=== PATIENT | female | born 2000 | race African-American/Black ===

== ENCOUNTER 2023-01-02 11:37 | Inpatient (IN) ==
[2023-01-02 12:13] LABS: Basophils # (auto) 0.03 K/uL (0-0.2); Basophils % (auto) 0.4 %; Eosinophils % (auto) 1.2 %; Hematocrit (blood only) 37.8 % (37.0-47.0); Immature Granulocytes # (auto) 0.02 K/uL (0.01-0.20); Immature Granulocytes % (auto) 0.2 %; Lymphocytes # (auto) 1.72 K/uL (1.2-3.4); Lymphocytes % (auto) 20.1 %; Mean Corpuscular Hemoglobin 30.4 pg (25.0-34.0); Mean Corpuscular Hgb Conc 34.4 g/dL (32.0-36.0); Mean Corpuscular Volume 88.5 fL (80.0-100.0); Mean Platelet Volume 9.6 fL (9.4-12.4); Monocytes # (auto) 0.72 K/uL (0.11-0.59); Monocytes % (auto) 8.4 %; Neutrophils # (auto) 5.95 K/uL (1.40-6.50); Neutrophils % (auto) 69.7 %; Platelet Count 247 K/uL (130-400); RDW Coefficient of Variation 13.1 % (11.5-14.5); RDW Standard Deviation 42.4 fL (36.4-46.3); Red Blood Count 4.27 M/uL (4.20-5.40); White Blood Count 8.54 K/ul (4.8-10.8)
[2023-01-02 12:31] LABS: Albumin Level 4.7 gm/dl (3.4-5.0); Anion Gap 8 (3-11); Bilirubin Direct 0.2 mg/dl (0-0.2); Calcium 9.8 mg/dl (8.6-10.3); Carbon Dioxide 28 mmol/L (21-32); Chloride 103 mmol/L (98-107); Potassium 3.7 mmol/L (3.5-5.1); Sodium 139 mmol/L (136-145)
[2023-01-02 12:36] LABS: Acetaminophen < 3 ug/ml (10-30); Salicylate < 3.0 mg/dl (3.0-30)
[2023-01-02 12:37] LABS: BUN Creatinine Ratio 14.3 (10-20); Blood Urea Nitrogen 8 mg/dl (6-23); Creatinine Clr Calc Pharmacy 114.1 ml/min; Est GFR (African American) > 150.0 ml/min; Est GFR (Non-African American) 133.3 ml/min; Glucose 84 mg/dl (70-99(Fasting))
[2023-01-02 12:44] LABS: Alkaline Phosphatase 71 U/L (34-104); Aspartate Aminotransferase 175 U/L (13-39); Total Protein 8.1 gm/dl (6.0-8.3)
[2023-01-02 12:55] LABS: Alanine Aminotransferase 1251 U/L (7-52)
[2023-01-02 12:57] LABS: Appearance Urine Clear (Clear); Bilirubin Urine Negative (Negative); Blood Urine Negative (Negative); Color Urine Yellow; Glucose Urine UA Negative (Negative); Ketones Urine Negative (Negative); Leukocyte Esterase Urine Negative (Negative); Nitrite Urine Negative (Negative); Protein Urine Negative (Negative); Specific Gravity Urine 1.005 (1.000-1.030); Urobilinogen Urine Negative (Negative)
[2023-01-02] MEDS ORDERED: LORazepam 2 MG/1 ML VIAL IM STA (13:39)
[2023-01-02] MEDS ORDERED: ACETYLCYSTEINE IV ONE ×3 (13:39→15:16)
[2023-01-02] MEDS ORDERED: DEXTROSE 5% IV ONE ×3 (13:39→15:16)
[2023-01-02 13:48] LABS: Amphetamines+Metham, Urine Neg (Neg); Barbiturates, Urine Neg (Neg); Benzodiazepine, Urine Neg (Neg); Cocaine, Urine Neg (Neg); MDMA (Ecstacy), Urine Neg (Neg); Methadone, Urine Neg (Neg); Opiate, Urine Neg (Neg); Phencyclidine, Urine Neg (Neg)
[2023-01-02 14:22] LABS: Base Excess VBG 5.9 mEq/L; HCO3 VBG 31 mmol/L; Oxygen Saturation VBG < 60.0 %; PCO2 VBG 47 mmHg (38-50); PO2 VBG 11 mmHg; pH VBG 7.43 (7.36-7.41)
--- NOTE | 2023-01-02 14:22 | Emergency Department Note ---
History of Present Illness General Chief complaint: Illness Stated complaint: ELEVATED LIVER ENZYMES Time Seen by Provider: 01/02/23 11:52 History of Present Illness Provider complaint: Abnormal labs 22-year-old female presents emergency department from the [facility] for abnormal labs. According to the staff who is at bedside the patient had elevated liver enzymes. Patient reports no pain. Patient is reportedly 302 at the [facility] after a suicide attempt. Patient states she tried to overdose on "saltine crackers". Home Medications Medication Instructions Recorded Confirmed Type albuterol sulfate 90 mcg/actuation 2 puff inhalation Q6 PRN asthma 01/02/23 01/02/23 History aerosol inhaler calcium carbonate 500 mg calcium 1,000 mg PO TID PRN Indigestion 01/02/23 01/02/23 History (1,250 mg) chewable tablet diphenhydramine HCl 50 mg capsule 50 mg PO HS 01/02/23 01/02/23 History naproxen 500 mg tablet 500 mg PO BID PRN Pain 01/02/23 01/02/23 History nicotine (polacrilex) 2 mg gum 2 mg buccal .5XSDAY PRN .nicotine 01/02/23 01/02/23 History (Nicorette) dependance olanzapine 5 mg tablet (Zyprexa) 5 mg PO BID 01/02/23 01/02/23 History sennosides 8.6 mg tablet (Senokot) 8.6 mg PO DAILY PRN Constipation 01/02/23 01/02/23 History Allergies Allergy/AdvReac Type Severity Reaction Status Date / Time dinoprostone Allergy Unknown Verified 01/02/23 14:02 Past Med/Surg History Medical History No pertinent family history No pertinent past medical history Surgical History No pertinent past surgical history Social History Smoking Status: Current every day smoker Feels Safe at Home: Yes Physical Exam Vital Signs Vital Signs - 24 hr 01/02/23 11:46 01/02/23 13:10 01/02/23 14:47 Temperature 36.5 C Temperature Source Temporal Artery Scan Pulse Rate 95 H Pulse Rate [Finger] 75 80 Pulse Rhythm Regular Respiratory Rate 20 16 16 Respiratory Effort / Characteristics Non-Labored Spontaneous Non-Labored Spontaneous Non-Labored Spontaneous Respiratory Depth Normal Normal Normal Blood Pressure 138/97 Blood Pressure [Right Arm] 138/101 H 132/81 Blood Pressure Mean 110 Blood Pressure Mean [Right Arm] 113 98 Pulse Oximetry 98 100 99 Oxygen Delivery Method Room Air Room Air Sepsis Recent Fever Within 48 Hours No Sepsis New/Unexplained Change in Mental Status No Sepsis Action Taken by Nursing No Action Required Physical Exam HENT: Exam performed. - Head: Normocephalic and atraumatic. EYES: Conjunctivae and EOM are normal. Right eye exhibits no discharge. Left eye exhibits no discharge. No scleral icterus. NECK: Normal range of motion. Neck supple. No JVD present. CV: Normal rate, regular rhythm, normal heart sounds and intact distal pulses. There is no peripheral edema. Palpable radial pulses bue. PULM/CHEST: Effort normal and breath sounds normal. No respiratory distress. No stridor. no wheezes. no rales. ABD: The abdomen is soft. There is no tenderness. NEURO: Motor and sensation grossly intact. SKIN: Skin is warm and dry. He is not diaphoretic. PSYCH: Extremely bizarre. Patient is having flight of ideas. He does not appear to have good insight. Course Course 1152: The patient was evaluated in room A9. A complete history and physical exam was performed Cardiac monitoring: An order was placed for continuous cardiac monitoring. The monitor shows a rate of 70 with sinus rhythm interpreted by me 1224: Spoke with Solo KNIGHT at the [facility]. He states that the patient was admitted on December 30 for depression and major depression. He states the patient came from [facility] to the [facility] for her diagnosis of depression and major depressive disorder. He initially stated that there is no reported overdose however he does state that the patient might of taken a total of 6 Tylenol within 24 hours of admission to the [facility]. 1233: I went back and spoke with the patient and she states she did try to overdose on Tylenol. Patient is again lacking insight and is having flight of ideas talk about very bizarre and random things about being and her iron levels. 1335: Spoke with poison control Dr. Maloney from [facility] toxicology. He and I both agree given the lack of an accurate history that can be provided by either the patient or her inpatient psychiatric facility, we should treat the patient with NAC for possible Tylenol overdose. He recommends getting a VBG and coagulation studies as well. He states that if the patient's venous pH is less than 7.3 she may need to be transferred to [facility] for possible liver transplant. He states after 17 hours of the neck treatment he wants a CMP and INR repeated to make sure that the patient's LFTs are less than 1000. 1454: Patient's VBG does not show any acidosis. Patient will be admitted to the [facility] team spoke with Chely who stated to admit to Dr. Ortiz 1543: CT of the head within normal limits. Dr. Ortiz will admit the patient Administered Medications Discontinued Medications Acetylcysteine 7,300 mg/ (Dextrose) 236.5 mls @ 200 mls/hr IV ONCE ONE; Protocol Stop: 01/02/23 14:49 Last Admin: 01/02/23 14:46 Dose: 200 mls/hr Documented By: MEGHA Lorazepam (Lorazepam 2 Mg/1 Ml Vial) 1 mg IM NOW STA Stop: 01/02/23 13:40 Last Admin: 01/02/23 14:42 Dose: Not Given Documented By: MEGHA Lorazepam (Lorazepam 2 Mg/1 Ml Vial) 1 mg IV NOW STA Stop: 01/02/23 14:42 Last Admin: 01/02/23 13:55 Dose: 1 mg Documented By: MEGHA Critical Care Time Critical Care Time: Yes Total Critical Care Time: 55 I have personally spent greater than 55 minutes of critical care time in the direct management of this patient. This includes bedside care, interpretation of diagnostic studies, and testing, discussion with consultants, patient, and family members, and other required patient management activities. This 55 minutes is in excess of all separately billable procedures. Medical Decision Making Medical Records Attestation: I reviewed the patient's medical records. External medical records reviewed from the [facility] and the patient was sent with [facility] lab drawings that were collected on December 31, 2022 which showed a total bilirubin of 1.9 AST of 2524 and ALT of 2869. Laboratory Data Attestation: I reviewed the patient's lab results. 01/02/23 11:57 01/02/23 11:57 Lab Results 01/02/23 01/02/23 01/02/23 Range/Units 11:57 11:57 11:57 WBC 8.54 (4.8-10.8) K/ul RBC 4.27 (4.20-5.40) M/uL Hgb 13.0 (12.0-16.0) g/dl Hct 37.8 (37.0-47.0) % MCV 88.5 (80.0-100.0) fL MCH 30.4 (25.0-34.0) pg MCHC 34.4 (32.0-36.0) g/dL RDW Std Deviation 42.4 (36.4-46.3) fL RDW Coeff of Christian 13.1 (11.5-14.5) % Plt Count 247 (130-400) K/uL MPV 9.6 (9.4-12.4) fL Immature Gran % (Auto) 0.2 % Neut % (Auto) 69.7 % Lymph % (Auto) 20.1 % [place]ff[place] % (Auto) 8.4 % Eos % (Auto) 1.2 % Baso % (Auto) 0.4 % Neut # (Auto) 5.95 (1.40-6.50) K/uL Lymph # (Auto) 1.72 (1.2-3.4) K/uL [place]duffie # (Auto) 0.72 H (0.11-0.59) K/uL Eos # (Auto) 0.10 (0-0.50) K/uL Baso # (Auto) 0.03 (0-0.2) K/uL Immature Gran # (Auto) 0.02 (0.01-0.20) K/uL PT (9.0-12.0) Seconds INR (0.9-1.1) APTT (21.0-31.0) Seconds PTT Ratio VBG pH (7.36-7.41) VBG pCO2 (38-50) mmHg VBG pO2 mmHg VBG HCO3 mmol/L VBG O2 Saturation % VBG Base Excess mEq/L Sodium 139 (136-145) mmol/L Potassium 3.7 (3.5-5.1) mmol/L Chloride 103 (98-107) mmol/L Carbon Dioxide 28 (21-32) mmol/L Anion Gap 8 (3-11) BUN 8 (6-23) mg/dl Creatinine 0.56 L (0.6-1.2) mg/dl Est Cr Clr Drug Dosing 114.1 ml/min Est GFR ( Amer) > 150.0 ml/min Est GFR (Non-Af Amer) 133.3 ml/min BUN/Creatinine Ratio 14.3 (10-20) Glucose 84 (70-99(Fasting)) mg/dl Calcium 9.8 (8.6-10.3) mg/dl Total Bilirubin 1.0 (0.2-1.0) mg/dl Direct Bilirubin 0.2 (0-0.2) mg/dl AST 175 H (13-39) U/L ALT 1251 H (7-52) U/L Alkaline Phosphatase 71 (34-104) U/L Ammonia (18-72) umol/L Total Protein 8.1 (6.0-8.3) gm/dl Albumin 4.7 (3.4-5.0) gm/dl Lipase (11-82) U/L TSH (0.300-4.500) uIu/ml HCG, Quant < 1 mIU/ml Urine Color Urine Appearance (Clear) Urine pH (4.5-7.5) Ur Specific [place] (1.000-1.030) Urine Protein (Negative) Urine Glucose (UA) (Negative) Urine Ketones (Negative) Urine Blood (Negative) Urine Nitrite (Negative) Urine Bilirubin (Negative) Urine Urobilinogen (Negative) Ur Leukocyte Esterase (Negative) POC Ur Test (NEG) Salicylates (3.0-30) mg/dl Urine Opiates Screen (Neg) Ur Methadone, Qual (Neg) Acetaminophen (10-30) ug/ml Urine Barbiturates (Neg) Ur Phencyclidine (PCP) (Neg) U Amphetamin/Meth Scrn (Neg) MDMA (Ecstasy) Screen (Neg) U Benzodiazepines Scrn (Neg) Ur Cocaine Metabolite (Neg) U Marijuana (THC) Screen (Neg) Ethyl Alcohol mg/dL (<10.0) mg/dl SARS-CoV-2, RNA, NAAT (NEGATIVE) 01/02/23 01/02/23 01/02/23 Range/Units 11:57 11:57 11:57 WBC (4.8-10.8) K/ul RBC (4.20-5.40) M/uL Hgb (12.0-16.0) g/dl Hct (37.0-47.0) % MCV (80.0-100.0) fL MCH (25.0-34.0) pg MCHC (32.0-36.0) g/dL RDW Std Deviation (36.4-46.3) fL RDW Coeff of Christian (11.5-14.5) % Plt Count (130-400) K/uL MPV (9.4-12.4) fL Immature Gran % (Auto) % Neut % (Auto) % Lymph % (Auto) % [place]duff[place] % (Auto) % Eos % (Auto) % Baso % (Auto) % Neut # (Auto) (1.40-6.50) K/uL Lymph # (Auto) (1.2-3.4) K/uL [place] # (Auto) (0.11-0.59) K/uL Eos # (Auto) (0-0.50) K/uL Baso # (Auto) (0-0.2) K/uL Immature Gran # (Auto) (0.01-0.20) K/uL PT (9.0-12.0) Seconds INR (0.9-1.1) APTT (21.0-31.0) Seconds PTT Ratio VBG pH (7.36-7.41) VBG pCO2 (38-50) mmHg VBG pO2 mmHg VBG HCO3 mmol/L VBG O2 Saturation % VBG Base Excess mEq/L Sodium (136-145) mmol/L Potassium (3.5-5.1) mmol/L Chloride (98-107) mmol/L Carbon Dioxide (21-32) mmol/L Anion Gap (3-11) BUN (6-23) mg/dl Creatinine (0.6-1.2) mg/dl Est Cr Clr Drug Dosing ml/min Est GFR ( Amer) ml/min Est GFR (Non-Af Amer) ml/min BUN/Creatinine Ratio (10-20) Glucose (70-99(Fasting)) mg/dl Calcium (8.6-10.3) mg/dl Total Bilirubin (0.2-1.0) mg/dl Direct Bilirubin (0-0.2) mg/dl AST (13-39) U/L ALT (7-52) U/L Alkaline Phosphatase (34-104) U/L Ammonia (18-72) umol/L Total Protein (6.0-8.3) gm/dl Albumin (3.4-5.0) gm/dl Lipase 28 (11-82) U/L TSH 0.611 (0.300-4.500) uIu/ml HCG, Quant mIU/ml Urine Color Urine Appearance (Clear) Urine pH (4.5-7.5) Ur Specific [place] (1.000-1.030) Urine Protein (Negative) Urine Glucose (UA) (Negative) Urine Ketones (Negative) Urine Blood (Negative) Urine Nitrite (Negative) Urine Bilirubin (Negative) Urine Urobilinogen (Negative) Ur Leukocyte Esterase (Negative) POC Ur Test (NEG) Salicylates < 3.0 L (3.0-30) mg/dl Urine Opiates Screen (Neg) Ur Methadone, Qual (Neg) Acetaminophen < 3 L (10-30) ug/ml Urine Barbiturates (Neg) Ur Phencyclidine (PCP) (Neg) U Amphetamin/Meth Scrn (Neg) MDMA (Ecstasy) Screen (Neg) U Benzodiazepines Scrn (Neg) Ur Cocaine Metabolite (Neg) U Marijuana (THC) Screen (Neg) Ethyl Alcohol mg/dL (<10.0) mg/dl SARS-CoV-2, RNA, NAAT (NEGATIVE) 01/02/23 01/02/23 01/02/23 Range/Units 11:57 12:03 12:20 WBC (4.8-10.8) K/ul RBC (4.20-5.40) M/uL Hgb (12.0-16.0) g/dl Hct (37.0-47.0) % MCV (80.0-100.0) fL MCH (25.0-34.0) pg MCHC (32.0-36.0) g/dL RDW Std Deviation (36.4-46.3) fL RDW Coeff of Christian (11.5-14.5) % Plt Count (130-400) K/uL MPV (9.4-12.4) fL Immature Gran % (Auto) % Neut % (Auto) % Lymph % (Auto) % [place]duff[place] % (Auto) % Eos % (Auto) % Baso % (Auto) % Neut # (Auto) (1.40-6.50) K/uL Lymph # (Auto) (1.2-3.4) K/uL [place] # (Auto) (0.11-0.59) K/uL Eos # (Auto) (0-0.50) K/uL Baso # (Auto) (0-0.2) K/uL Immature Gran # (Auto) (0.01-0.20) K/uL PT (9.0-12.0) Seconds INR (0.9-1.1) APTT (21.0-31.0) Seconds PTT Ratio VBG pH (7.36-7.41) VBG pCO2 (38-50) mmHg VBG pO2 mmHg VBG HCO3 mmol/L VBG O2 Saturation % VBG Base Excess mEq/L Sodium (136-145) mmol/L Potassium (3.5-5.1) mmol/L Chloride (98-107) mmol/L Carbon Dioxide (21-32) mmol/L Anion Gap (3-11) BUN (6-23) mg/dl Creatinine (0.6-1.2) mg/dl Est Cr Clr Drug Dosing ml/min Est GFR ( Amer) ml/min Est GFR (Non-Af Amer) ml/min BUN/Creatinine Ratio (10-20) Glucose (70-99(Fasting)) mg/dl Calcium (8.6-10.3) mg/dl Total Bilirubin (0.2-1.0) mg/dl Direct Bilirubin (0-0.2) mg/dl AST (13-39) U/L ALT (7-52) U/L Alkaline Phosphatase (34-104) U/L Ammonia 40.0 (18-72) umol/L Total Protein (6.0-8.3) gm/dl Albumin (3.4-5.0) gm/dl Lipase (11-82) U/L TSH (0.300-4.500) uIu/ml HCG, Quant mIU/ml Urine Color Urine Appearance (Clear) Urine pH (4.5-7.5) Ur Specific [place] (1.000-1.030) Urine Protein (Negative) Urine Glucose (UA) (Negative) Urine Ketones (Negative) Urine Blood (Negative) Urine Nitrite (Negative) Urine Bilirubin (Negative) Urine Urobilinogen (Negative) Ur Leukocyte Esterase (Negative) POC Ur Test (NEG) Salicylates (3.0-30) mg/dl Urine Opiates Screen (Neg) Ur Methadone, Qual (Neg) Acetaminophen (10-30) ug/ml Urine Barbiturates (Neg) Ur Phencyclidine (PCP) (Neg) U Amphetamin/Meth Scrn (Neg) MDMA (Ecstasy) Screen (Neg) U Benzodiazepines Scrn (Neg) Ur Cocaine Metabolite (Neg) U Marijuana (THC) Screen (Neg) Ethyl Alcohol mg/dL < 10.0 (<10.0) mg/dl SARS-CoV-2, RNA, NAAT NEGATIVE (NEGATIVE) 01/02/23 01/02/23 01/02/23 Range/Units 12:21 12:21 12:27 WBC (4.8-10.8) K/ul RBC (4.20-5.40) M/uL Hgb (12.0-16.0) g/dl Hct (37.0-47.0) % MCV (80.0-100.0) fL MCH (25.0-34.0) pg MCHC (32.0-36.0) g/dL RDW Std Deviation (36.4-46.3) fL RDW Coeff of Christian (11.5-14.5) % Plt Count (130-400) K/uL MPV (9.4-12.4) fL Immature Gran % (Auto) % Neut % (Auto) % Lymph % (Auto) % [place] % (Auto) % Eos % (Auto) % Baso % (Auto) % Neut # (Auto) (1.40-6.50) K/uL Lymph # (Auto) (1.2-3.4) K/uL [place] # (Auto) (0.11-0.59) K/uL Eos # (Auto) (0-0.50) K/uL Baso # (Auto) (0-0.2) K/uL Immature Gran # (Auto) (0.01-0.20) K/uL PT (9.0-12.0) Seconds INR (0.9-1.1) APTT (21.0-31.0) Seconds PTT Ratio VBG pH (7.36-7.41) VBG pCO2 (38-50) mmHg VBG pO2 mmHg VBG HCO3 mmol/L VBG O2 Saturation % VBG Base Excess mEq/L Sodium (136-145) mmol/L Potassium (3.5-5.1) mmol/L Chloride (98-107) mmol/L Carbon Dioxide (21-32) mmol/L Anion Gap (3-11) BUN (6-23) mg/dl Creatinine (0.6-1.2) mg/dl Est Cr Clr Drug Dosing ml/min Est GFR ( Amer) ml/min Est GFR (Non-Af Amer) ml/min BUN/Creatinine Ratio (10-20) Glucose (70-99(Fasting)) mg/dl Calcium (8.6-10.3) mg/dl Total Bilirubin (0.2-1.0) mg/dl Direct Bilirubin (0-0.2) mg/dl AST (13-39) U/L ALT (7-52) U/L Alkaline Phosphatase (34-104) U/L Ammonia (18-72) umol/L Total Protein (6.0-8.3) gm/dl Albumin (3.4-5.0) gm/dl Lipase (11-82) U/L TSH (0.300-4.500) uIu/ml HCG, Quant mIU/ml Urine Color Yellow Urine Appearance Clear (Clear) Urine pH 7.0 (4.5-7.5) Ur Specific [place] 1.005 (1.000-1.030) Urine Protein Negative (Negative) Urine Glucose (UA) Negative (Negative) Urine Ketones Negative (Negative) Urine Blood Negative (Negative) Urine Nitrite Negative (Negative) Urine Bilirubin Negative (Negative) Urine Urobilinogen Negative (Negative) Ur Leukocyte Esterase Negative (Negative) POC Ur Test NEG (NEG) Salicylates (3.0-30) mg/dl Urine Opiates Screen Neg (Neg) Ur Methadone, Qual Neg (Neg) Acetaminophen (10-30) ug/ml Urine Barbiturates Neg (Neg) Ur Phencyclidine (PCP) Neg (Neg) U Amphetamin/Meth Scrn Neg (Neg) MDMA (Ecstasy) Screen Neg (Neg) U Benzodiazepines Scrn Neg (Neg) Ur Cocaine Metabolite Neg (Neg) U Marijuana (THC) Screen Pos H (Neg) Ethyl Alcohol mg/dL (<10.0) mg/dl SARS-CoV-2, RNA, NAAT (NEGATIVE) 01/02/23 01/02/23 Range/Units 14:11 14:11 WBC (4.8-10.8) K/ul RBC (4.20-5.40) M/uL Hgb (12.0-16.0) g/dl Hct (37.0-47.0) % MCV (80.0-100.0) fL MCH (25.0-34.0) pg MCHC (32.0-36.0) g/dL RDW Std Deviation (36.4-46.3) fL RDW Coeff of Christian (11.5-14.5) % Plt Count (130-400) K/uL MPV (9.4-12.4) fL Immature Gran % (Auto) % Neut % (Auto) % Lymph % (Auto) % [place] % (Auto) % Eos % (Auto) % Baso % (Auto) % Neut # (Auto) (1.40-6.50) K/uL Lymph # (Auto) (1.2-3.4) K/uL [place] # (Auto) (0.11-0.59) K/uL Eos # (Auto) (0-0.50) K/uL Baso # (Auto) (0-0.2) K/uL Immature Gran # (Auto) (0.01-0.20) K/uL PT 10.9 (9.0-12.0) Seconds INR 1.0 (0.9-1.1) APTT 28.5 (21.0-31.0) Seconds PTT Ratio 1.0 VBG pH 7.43 H (7.36-7.41) VBG pCO2 47 (38-50) mmHg VBG pO2 11 mmHg VBG HCO3 31 mmol/L VBG O2 Saturation < 60.0 % VBG Base Excess 5.9 mEq/L Sodium (136-145) mmol/L Potassium (3.5-5.1) mmol/L Chloride (98-107) mmol/L Carbon Dioxide (21-32) mmol/L Anion Gap (3-11) BUN (6-23) mg/dl Creatinine (0.6-1.2) mg/dl Est Cr Clr Drug Dosing ml/min Est GFR ( Amer) ml/min Est GFR (Non-Af Amer) ml/min BUN/Creatinine Ratio (10-20) Glucose (70-99(Fasting)) mg/dl Calcium (8.6-10.3) mg/dl Total Bilirubin (0.2-1.0) mg/dl Direct Bilirubin (0-0.2) mg/dl AST (13-39) U/L ALT (7-52) U/L Alkaline Phosphatase (34-104) U/L Ammonia (18-72) umol/L Total Protein (6.0-8.3) gm/dl Albumin (3.4-5.0) gm/dl Lipase (11-82) U/L TSH (0.300-4.500) uIu/ml HCG, Quant mIU/ml Urine Color Urine Appearance (Clear) Urine pH (4.5-7.5) Ur Specific [place] (1.000-1.030) Urine Protein (Negative) Urine Glucose (UA) (Negative) Urine Ketones (Negative) Urine Blood (Negative) Urine Nitrite (Negative) Urine Bilirubin (Negative) Urine Urobilinogen (Negative) Ur Leukocyte Esterase (Negative) POC Ur Test (NEG) Salicylates (3.0-30) mg/dl Urine Opiates Screen (Neg) Ur Methadone, Qual (Neg) Acetaminophen (10-30) ug/ml Urine Barbiturates (Neg) Ur Phencyclidine (PCP) (Neg) U Amphetamin/Meth Scrn (Neg) MDMA (Ecstasy) Screen (Neg) U Benzodiazepines Scrn (Neg) Ur Cocaine Metabolite (Neg) U Marijuana (THC) Screen (Neg) Ethyl Alcohol mg/dL (<10.0) mg/dl SARS-CoV-2, RNA, NAAT (NEGATIVE) Imaging Data Attestation: I personally reviewed and interpreted this imaging study as follows: My Impression: CT head: no ICH Radiologist's Impression: Head CT 01/02/23 11:[address] CT DOSE: 625.80 mGy.cm HISTORY: Altered mental status. TECHNIQUE: Multiaxial CT images of the head were performed without the use of intravenous contrast. Automated exposure control was utilized for this study. A dose lowering technique was utilized adhering to the principles of ALARA. Comparison: None. Findings: The paranasal sinuses and mastoid air cells are clear. The calvarium and skull base are intact. The ventricles and sulci are within normal limits. There is no mass, hematoma, midline shift, or acute infarct. Impression: No acute intracranial abnormality. ACT 112: Negative or not required by law. Electronically signed by: Lambert Monroy M.D. 01/02/2023 3:12 PM ECG Data Attestation: I personally reviewed and interpreted this ECG as follows: Indication: + toxicologic Rate (beats per minute): 69 Rhythm: + normal sinus ECG Intervals/blocks: + Normal QRS, + Normal IN and + Normal QT-c ECG ST segments: + Normal ST segments [facility] Narrative 1152: The patient was evaluated in room A9. A complete history and physical exam was performed Cardiac monitoring: An order was placed for continuous cardiac monitoring. The monitor shows a rate of 70 with sinus rhythm interpreted by me 1224: Spoke with Solo KNIGHT at the [facility]. He states that the patient was admitted on December 30 for depression and major depression. He states the patient came from [facility] to the [facility] for her diagnosis of depression and major depressive disorder. He initially stated that there is no reported overdose however he does state that the patient might of taken a total of 6 Tylenol within 24 hours of admission to the [facility]. 1233: I went back and spoke with the patient and she states she did try to overdose on Tylenol. Patient is again lacking insight and is having flight of ideas talk about very bizarre and random things about being and her iron levels. 1335: Spoke with poison control Dr. Maloney from [facility] toxicology. He and I both agree given the lack of an accurate history that can be provided by either the patient or her inpatient psychiatric facility, we should treat the patient with NAC for possible Tylenol overdose. He recommends getting a VBG and coagulation studies as well. He states that if the patient's venous pH is less than 7.3 she may need to be transferred to [facility] for possible liver t ransplant. He states after 17 hours of the neck treatment he wants a CMP and INR repeated to make sure that the patient's LFTs are less than 1000. 1454: Patient's VBG does not show any acidosis. Patient will be admitted to the [facility] team spoke with Chely who stated to admit to Dr. Ortiz Impression & Plan Overdose on Tylenol, Transaminitis Discharge Plan Visit Data Chief Complaint: Illness Stated Complaint: ELEVATED LIVER ENZYMES ED Provider: Ross Muñoz Discharge Problem: Overdose on Tylenol, Transaminitis Patient Disposition: Admitted As Inpatient Forms Stand Alone Forms: [facility] Prescriptions Prescriptions: No Action sennosides [Senokot] 8.6 mg Tablet 8.6 mg PO DAILY PRN (Reason: Constipation) diphenhydramine HCl [Benadryl] 50 mg Capsule 50 mg PO HS nicotine (polacrilex) [Nicorette] 2 mg Gum 2 mg BUCCAL .5XSDAY PRN (Reason: .nicotine dependance) olanzapine [Zyprexa] 5 mg Tablet 5 mg PO BID Rx Instructions: for Psychosis calcium carbonate [Tums 500] 500 mg calcium (1,250 mg) Tablet,Chewable 1,000 mg PO TID PRN (Reason: Indigestion) albuterol sulfate 90 mcg/actuation Hfa Aerosol Inhaler 2 puff INHALATION Q6 PRN (Reason: asthma) naproxen 500 mg Tablet 500 mg PO BID PRN (Reason: Pain) Referrals Referrals: Elba Watkins [Primary Care Provider] -
[2023-01-02] MEDS ORDERED: LORazepam 2 MG/1 ML VIAL IV STA (14:41)
[2023-01-02 14:58] LABS: Partial Thromboplastin Time 28.5 Seconds (21.0-31.0); Prothrombin Time 10.9 Seconds (9.0-12.0)
--- NOTE | 2023-01-02 15:04 | Electrocardiogram Report ---
Test Reason : Blood Pressure : / mmHG Vent. Rate : 069 BPM Atrial Rate : 069 BPM P-R Int : 118 ms QRS Dur : 082 ms QT Int : 362 ms P-R-T Axes : 060 073 -20 degrees QTc Int : 387 ms Normal sinus rhythm with sinus arrhythmia Nonspecific T wave abnormality Abnormal ECG No previous ECGs available Confirmed by Bryce Wheeler ([id number]) on 01/02/2023 3:03:48 PM Referred By: Confirmed By:Archie Wheeler
--- NOTE | 2023-01-02 15:13 | CT Scan Report ---
HEAD CT NONCONTRAST CT DOSE: 625.80 mGy.cm HISTORY: Altered mental status. TECHNIQUE: Multiaxial CT images of the head were performed without the use of intravenous contrast. A utomated exposure control was utilized for this study. A dose lowering technique was utilized adheri ng to the principles of ALARA. Comparison: None. Findings: The paranasal sinuses and mastoid air cells are clear. The calvarium and skull base are int act. The ventricles and sulci are within normal limits. There is no mass, hematoma, midline shift, or acute infarct. Impression: No acute intracranial abnormality. ACT 112: Negative or not required by law. Electronically signed by: Lambert Monroy M.D. 01/02/2023 3:12 PM
--- NOTE | 2023-01-02 16:44 | History & Physical Report ---
Date of Service January 02, 2023 Assessment & Plan (1) Overdose on Tylenol: (2) Transaminitis: (3) MDD (major depressive disorder): (4) Mood disorder: (5) Constipation: (6) Tobacco use disorder: (7) Indigestion: (8) Asthma: Plan Pt is a 22yo female presenting from the [facility] (where she was reportedly currently admitted for the past 3 days after a suicide attempt in the setting of MDD) with concern about her liver enzymes and possible tylenol overdose. Tylenol Overdose/Elevated liver enzymes -NAC as ordered -Trend CMP, INR per toxicology recs (due 17 hours after first NAC dose) -Hold home naproxen -Psychiatry consult MDD/Suicide Attempt/Mood disorder -continue home olanzapine -Psychiatry consult Constipation: continue home senekot Tobacco use Disorder- continue home nicorette Indigestion- continue home TUMs as needed Asthma-continue home inhaler as needed Dispo: med/surg with tele Diet: regular, safe tray CODE status: Full code DVT prophylaxis: ambulation as tolerated based on age History of Present Illness Chief Complaint: tylenol overdose Primary Care Provider: Psychiatry [facility] Pt is a 22yo female presenting from the [facility] (where she was reportedly currently admitted for the past 3 days after a suicide attempt in the setting of MDD) with concern about her liver enzymes and possible tylenol overdose. Pt's speech is pressured in the room and she is rambling. Unsure the accuracy of her statements as thoughts are tangential. However, she is concerned that she might be as she states she has been sexually active quite a bit recently. Unsure of her last period. States she is a mother to a one year old daughter. Is concerned about "all the big guys". States that she has been taking "handfuls" of tylenol. Would like to go back to "the facility". Denies any N/V/Abdominal pain. ED workup significant for elevated AST and ALT, urine tox positive for THC (marijuana). ED provider contacted Toxicology who advised NAC treatment (ordered by the ED) with repeat CMP and INR 17 hours after the first NAC treatment. Toxicology advised would like liver enzymes <1000 at that time. Allergies Allergy/AdvReac Type Severity Reaction Status Date / Time dinoprostone Allergy Unknown Verified 01/02/23 14:02 Home Medications Medication Instructions Recorded Confirmed Type albuterol sulfate 90 mcg/actuation 2 puff inhalation Q6 PRN asthma 01/02/23 01/02/23 History aerosol inhaler calcium carbonate 500 mg calcium 1,000 mg PO TID PRN Indigestion 01/02/23 01/02/23 History (1,250 mg) chewable tablet diphenhydramine HCl 50 mg capsule 50 mg PO HS 01/02/23 01/02/23 History naproxen 500 mg tablet 500 mg PO BID PRN Pain 01/02/23 01/02/23 History nicotine (polacrilex) 2 mg gum 2 mg buccal .5XSDAY PRN .nicotine 01/02/23 01/02/23 History (Nicorette) dependance olanzapine 5 mg tablet (Zyprexa) 5 mg PO BID 01/02/23 01/02/23 History sennosides 8.6 mg tablet (Senokot) 8.6 mg PO DAILY PRN Constipation 01/02/23 01/02/23 History Past Med/Surg History Medical History No pertinent family history No pertinent past medical history Surgical History No pertinent past surgical history Social History Smoking Status: Current every day smoker Feels Safe at Home: Yes Review of Systems Review of Systems: Unobtainable due to mental health condition Physical Exam Physical Exam: General: Alert, oriented. No acute distress, resting comfortably in bed. Skin: No noted rashes or bruises Psych: Tangential, incoherent speech Neuro: No gross deficits HEENT: NC/AT Chest: Nontender to palpation. CV: RRR, Normal s1, s2. No murmurs appreciated Resp: Breath sounds clear bilaterally, no increased effort of breathing. Abdomen: Soft, nontender, nondistended. No guarding. Extremities: No edema in lower extremities bilaterally. Results & Data Results & Data Vital Signs (Past 12 Hours) Vital Signs Temp Pulse Pulse Resp BP BP Pulse Ox 01/02/23 14:47 80 16 132/81 99 01/02/23 13:10 75 16 138/101 H 100 01/02/23 11:46 36.5 C 95 H 20 138/97 98 O2 Del Method 01/02/23 14:47 Room Air 01/02/23 13:10 Room Air 01/02/23 11:46
[2023-01-02] MEDS ORDERED: NICOTINE POLACRILEX 2 MG GUM MT PRN (20:06)
[2023-01-02] MEDS ORDERED: ALBUTEROL HFA 8 GM INHALER INH PRN (20:06)
[2023-01-02] MEDS ORDERED: SENNA 8.6 MG TAB PO PRN (20:06)
[2023-01-02] MEDS ORDERED: CALCIUM CARBONATE 500 MG CHEWABLE TAB PO PRN (20:14)
[2023-01-02] MEDS: OLANZapine 5 MG TABLET PO SCH (20:43)
[2023-01-02] MEDS: diphenhydrAMINE Capsule 25 MG CAP PO SCH (20:43)
[2023-01-03 08:14] LABS: Prothrombin Time 11.1 Seconds (9.0-12.0)
[2023-01-03 08:24] LABS: Albumin Globulin Ratio 1.5 (0.9-2); Albumin Level 3.8 gm/dl (3.4-5.0); Alkaline Phosphatase 62 U/L (34-104); Anion Gap 4 (3-11); Aspartate Aminotransferase 74 U/L (13-39); BUN Creatinine Ratio 24.1 (10-20); Bilirubin,Total 2.3 mg/dl (0.2-1.0); Blood Urea Nitrogen 13 mg/dl (6-23); Calcium 9.1 mg/dl (8.6-10.3); Carbon Dioxide 27 mmol/L (21-32); Chloride 108 mmol/L (98-107); Creatinine Clr Calc Pharmacy 112.4 ml/min; Est GFR (African American) > 150.0 ml/min; Est GFR (Non-African American) 134.9 ml/min; Globulin 2.6 gm/dl (2.5-4.0); Glucose 79 mg/dl (70-99(Fasting)); Potassium 3.8 mmol/L (3.5-5.1); Sodium 139 mmol/L (136-145); Total Protein 6.4 gm/dl (6.0-8.3)
[2023-01-03 09:07] LABS: Alanine Aminotransferase 733 U/L (7-52)
[2023-01-03] MEDS: OLANZapine 5 MG TABLET PO SCH (09:56)
[2023-01-03 10:10] LABS: BUN Creatinine Ratio 18.8 (10-20); Creatinine Clr Calc Pharmacy 94.8 ml/min; Est GFR (African American) 147.8 ml/min; Est GFR (Non-African American) 127.6 ml/min; Potassium 3.7 mmol/L (3.5-5.1)
[2023-01-03 10:16] LABS: Basophils # (auto) 0.02 K/uL (0-0.2); Basophils % (auto) 0.3 %; Eosinophils # (auto) 0.14 K/uL (0-0.50); Eosinophils % (auto) 2.1 %; Hematocrit (blood only) 33.8 % (37.0-47.0); Hemoglobin 11.6 g/dl (12.0-16.0); Immature Granulocytes # (auto) 0.02 K/uL (0.01-0.20); Immature Granulocytes % (auto) 0.3 %; Lymphocytes # (auto) 1.67 K/uL (1.2-3.4); Lymphocytes % (auto) 25.6 %; Mean Corpuscular Hemoglobin 30.1 pg (25.0-34.0); Mean Corpuscular Hgb Conc 34.3 g/dL (32.0-36.0); Mean Corpuscular Volume 87.6 fL (80.0-100.0); Monocytes # (auto) 0.46 K/uL (0.11-0.59); Neutrophils # (auto) 4.22 K/uL (1.40-6.50); Neutrophils % (auto) 64.7 %; Platelet Count 253 K/uL (130-400); RDW Coefficient of Variation 13.3 % (11.5-14.5); RDW Standard Deviation 42.5 fL (36.4-46.3); Red Blood Count 3.86 M/uL (4.20-5.40); White Blood Count 6.53 K/ul (4.8-10.8)
[2023-01-03 10:19] LABS: Prothrombin Time 11.4 Seconds (9.0-12.0)
[2023-01-03 10:29] LABS: Albumin Globulin Ratio 1.4 (0.9-2); Bilirubin,Total 2.8 mg/dl (0.2-1.0); Globulin 2.9 gm/dl (2.5-4.0); Total Protein 6.9 gm/dl (6.0-8.3)
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
[2023-01-03] MEDS ORDERED: OLANZapine ZYDIS 5 MG ORALLY DIS. TAB PO PRN (12:43)
[2023-01-03 12:52] LABS: Pregnancy Test, Serum Negative (Negative)
--- NOTE | 2023-01-03 13:10 | Hospitalist Progress Note ---
Date of Service January 03, 2023 Assessment & Plan (1) Overdose on Tylenol: (2) Transaminitis: (3) MDD (major depressive disorder): (4) Mood disorder: (5) Constipation: (6) Tobacco use disorder: (7) Indigestion: (8) Asthma: Plan Pt is a 22yo female presenting from the [facility] (where she was reportedly currently admitted for the past 3 days after a suicide attempt in the setting of MDD) with concern about her liver enzymes and possible tylenol overdose. Tylenol Overdose/Elevated liver enzymes -NAC as ordered -Trend CMP, INR per toxicology recs (due 17 hours after first NAC dose) -Hold home naproxen -Psychiatry consult 01/03 LFTs improving, INR 1.0 asymptomatic discussed with poison control center NAC protocol completed return to the [facility] tomorrow if clinically stable, labs ok discussed with Psych service MDD/Suicide Attempt/Mood disorder - Olanzapine increased -Psychiatry consult Constipation: continue home senekot Tobacco use Disorder- continue home nicorette Indigestion- continue home TUMs as needed Asthma-continue home inhaler as needed Dispo: return to the [facility] when medically stable, hopefully tomorrow Diet: regular, safe tray CODE status: Full code DVT prophylaxis: ambulation as tolerated based on age Admission and Anticipated Discharge Date Admission Date: January 02, 2023 Subjective ff up for tylenol overdose, etc seen resting in bed, 1:1 obs at bedside- Florian alert, oriented x 3, answers all questions appropriately states she feels fine overall denies nausea, abd pain, fever/chills no chest pain, dyspnea, palpitations, dizziness no other new symptoms Review of Systems Review of Systems: all noted and negative except for above Physical Exam Physical Exam: General- oriented x 3, not in distress, speaks in sentences with no effort or accessory muscle use Head- atraumatic Eyes- PERRL, EOMI, anicteric ENT- oropharynx clear Neck- supple, no JVD, no adenopathy, no thyromegaly; carotids +2/2, no bruits appreciated Lungs- clear to auscultation bilaterally, no rales/wheezes Heart- normal rate, regular rhythm; no murmur, no gallop, no rub appreciated Abdomen- normal bowel sounds, nondistended, soft, nontender, no masses or hepatosplenomegaly Extremities- no pretibial edema, no calf tenderness; peripheral pulses intact Neuro- alert, oriented x 3; CN 2-12 grossly intact; motor 5/5 bilaterally;sensation 100% on all extremities; no other gross focal neurologic deficits Skin- warm & dry Results & Data Results & Data Vital Signs (Past 12 Hours) Vital Signs Temp Pulse Pulse Resp BP Pulse Ox O2 Del Method 01/03/23 11:48 36.8 C 91 H 18 118/82 100 Room Air 01/03/23 09:50 Room Air 01/03/23 07:30 71 01/03/23 08:00 36.4 C L 87 18 145/74 H 100 Room Air all noted and reviewed including below
[2023-01-03] MEDS: SODIUM CHLORIDE 0.9% 1000ML 1,000 ML IV SCH (14:19)
[2023-01-03] MEDS ORDERED: POLYETHYLENE (MIRALAX) 17 GM PACK PO PRN (19:58)
[2023-01-03] MEDS: OLANZapine ZYDIS 5 MG ORALLY DIS. TAB PO SCH (20:51)
[2023-01-03] MEDS: diphenhydrAMINE Capsule 25 MG CAP PO SCH (20:58)
[2023-01-04] MEDS: SODIUM CHLORIDE 0.9% 1000ML 1,000 ML IV SCH (04:43)
[2023-01-04] MEDS: OLANZapine ZYDIS 5 MG ORALLY DIS. TAB PO SCH ×2 (08:21→21:27)
[2023-01-04] MEDS ORDERED: OLANZAPINE 2.5 MG TAB PO SCH (09:00)
[2023-01-04 09:07] LABS: Basophils # (auto) 0.03 K/uL (0-0.2); Basophils % (auto) 0.4 %; Eosinophils # (auto) 0.13 K/uL (0-0.50); Eosinophils % (auto) 1.6 %; Hemoglobin 11.5 g/dl (12.0-16.0); Immature Granulocytes # (auto) 0.02 K/uL (0.01-0.20); Immature Granulocytes % (auto) 0.2 %; Lymphocytes # (auto) 2.79 K/uL (1.2-3.4); Lymphocytes % (auto) 33.5 %; Mean Corpuscular Hgb Conc 32.9 g/dL (32.0-36.0); Mean Corpuscular Volume 91.4 fL (80.0-100.0); Mean Platelet Volume 9.9 fL (9.4-12.4); Monocytes # (auto) 0.56 K/uL (0.11-0.59); Monocytes % (auto) 6.7 %; Neutrophils # (auto) 4.79 K/uL (1.40-6.50); Neutrophils % (auto) 57.6 %; Platelet Count 270 K/uL (130-400); RDW Coefficient of Variation 13.6 % (11.5-14.5); RDW Standard Deviation 46.3 fL (36.4-46.3); Red Blood Count 3.83 M/uL (4.20-5.40); White Blood Count 8.32 K/ul (4.8-10.8)
[2023-01-04 09:25] LABS: Anion Gap 4 (3-11); BUN Creatinine Ratio 27.6 (10-20); Blood Urea Nitrogen 16 mg/dl (6-23); Calcium 9.4 mg/dl (8.6-10.3); Carbon Dioxide 27 mmol/L (21-32); Chloride 109 mmol/L (98-107); Creatinine Clr Calc Pharmacy 104.6 ml/min; Est GFR (African American) > 150.0 ml/min; Est GFR (Non-African American) 131.8 ml/min; Glucose 77 mg/dl (70-99(Fasting)); Potassium 4.3 mmol/L (3.5-5.1); Sodium 140 mmol/L (136-145)
[2023-01-04 09:35] LABS: INR 0.9 (0.9-1.1); Prothrombin Time 10.3 Seconds (9.0-12.0)
[2023-01-04 09:36] LABS: Albumin Level 4.2 gm/dl (3.4-5.0); Alkaline Phosphatase 68 U/L (34-104); Aspartate Aminotransferase 53 U/L (13-39); Bilirubin Direct 0.5 mg/dl (0-0.2); Bilirubin,Total 2.1 mg/dl (0.2-1.0); Total Protein 7.2 gm/dl (6.0-8.3)
[2023-01-04 09:41] LABS: Alanine Aminotransferase 580 U/L (7-52)
--- NOTE | 2023-01-04 10:27 | Psychiatric Progress Note ---
Date of Service January 04, 2023 Impression / Recommendations Impression 22 yo woman admitted medically from local inpatient psychiatry facility ([facility]) for elevated LFTs after disclosing recent ingestion of excess acetaminophen and recent new onset symptoms of psychosis. Diagnostically consistent with unspecified psychosis with differential including primary thought disorder versus BPAD mixed episode versus complex trauma versus substance-induced (UDS positive for cannabis). Remains unclear what lead to her acetaminophen ingestion nor why she delayed in disclosing this but does not seem consistent with typical suicide attempt rather seems it was driven by recent delusions/paranoia/hyper-gnosticism beliefs. She is currently denying depression and SI but does continue to have some signs of mild psychosis such as paranoia and at times makes some odd statements. Plan likely for return to [facility] for ongoing inpatient psychiatric treatment once medically stable. Will adjust olanzapine slightly and per her preference will switch to ODT formulation. The patients previous 302 commitment has . If the patient attempts to leave [place], psych liason would need to be called to reassess and likely a new 302 warrant would need to be obtained. 01/04/2023: Ongoing symptoms of acute jennifer, seems to be largely euphoric jennifer but with periods of abrupt tearfulness/mood lability ongoing. Tolerating olanzapine without side effects. Plan for transfer to [facility]. (1) Psychotic disorder: (2) Paranoia: (3) Acetaminophen overdose of undetermined intent: Plan -Continue 1-on-1 given periods of impulsivity -Olanzapine ODT 2.5mg QAM and 7.5 mg HS -Olanzapine 5mg BID prn for acute agitation/psychosis -For behavioral emergency: olanzapine 10mg IM x 1 (check EKG if IM dose required, NEVER co-administer with IM or IV benzodiazepines). -Plan for return to [facility] pending their request for additional liver imaging Interval History Identifying Information 22 yo woman with history of post psychosis admitted to the [facility] on 12/30/2022 from [facility] after presenting for concern for first psychotic episode and then disclosing acetaminophen overdose prior to admission while at the [facility] and found to have elevated LFTs. Psychiatry consulted for malou mmendations by hospitalist service. Chief Complaint "I'm pretty good". Review of Systems Notes slept only a few hours, eating well Subjective Subjective Patient was seen & assessed and interval progress reviewed. Cooperative with all care. Taking medication and accepted additional dose of zyprexa 5mg po prn this morning. Expresses repeated gratitude for the care she is receiving here and kindness of everyone. Feels she has been able to talk to a lot of people and process impact of recent stress in causing erratic sleep. Intermittently tearful. Eager to return to the [facility] once medically stable. After we left the room she was observed to be speaking to herself, seemed to be reciting a poem, and suddenly became tearful. Physical Exam Psychiatric Orientation: alert and oriented x 3 Apperance: appropriately dressed and appropriately groomed Eye Contact: good eye contact Motor Behavior: no abnormal motor movements Speech: normal rate/rhythm/volume of speech (expansive, hyperverbal) Affect: euthymic affect, + tearful affect and + labile affect Mood: no depressed mood and no anxious mood Thought Process: goal directed thought process Thought Content: + paranoid and + delusions (hyper-gnosticism beliefs) Suicidal Thoughts: denies suicidal thoughts Homicidal Thoughts: denies homicidal thoughts Hallucinations: no auditory hallucinations and no visual hallucinations Cognition: remote memory grossly intact, attention grossly intact and language grossly intact; + recent memory not intact Estimated Intelligence: consistent with education level Insight: + limited insight Judgment: + limited judgement Vital Signs (Past 24 Hours) Last Vital Signs Temp 36.7 C 01/04/23 03:23 Pulse 67 01/04/23 07:43 Resp 18 01/04/23 03:23 BP 107/67 01/04/23 03:23 Pulse Ox 100 01/04/23 03:23 O2 Del Method Room Air 01/04/23 03:23 Results & Data ([facility]) Laboratory Results Laboratory Results - last 24 hr 01/03/23 01/03/23 01/04/23 09:30 12:09 08:37 WBC 8.32 RBC 3.83 L Hgb 11.5 L Hct 35.0 L MCV 91.4 MCH 30.0 MCHC 32.9 RDW Std Deviation 46.3 RDW Coeff of Christian 13.6 Plt Count 270 MPV 9.9 Immature Gran % (Auto) 0.2 Neut % (Auto) 57.6 Lymph % (Auto) 33.5 Weld % (Auto) 6.7 Eos % (Auto) 1.6 Baso % (Auto) 0.4 Neut # (Auto) 4.79 Lymph # (Auto) 2.79 Weld # (Auto) 0.56 Eos # (Auto) 0.13 Baso # (Auto) 0.03 Immature Gran # (Auto) 0.02 PT INR Sodium Potassium Chloride Carbon Dioxide Anion Gap BUN Creatinine Est Cr Clr Drug Dosing Est GFR ( Amer) Est GFR (Non-Af Amer) BUN/Creatinine Ratio Glucose Calcium Total Bilirubin 2.8 H Direct Bilirubin AST 75 H ALT 750 H Alkaline Phosphatase 60 Total Protein 6.9 Albumin 4.0 Globulin 2.9 Albumin/Globulin Ratio 1.4 HCG, Qual Negative 01/04/23 01/04/23 08:37 08:37 WBC RBC Hgb Hct MCV MCH MCHC RDW Std Deviation RDW Coeff of Christian Plt Count MPV Immature Gran % (Auto) Neut % (Auto) Lymph % (Auto) Weld % (Auto) Eos % (Auto) Baso % (Auto) Neut # (Auto) Lymph # (Auto) Weld # (Auto) Eos # (Auto) Baso # (Auto) Immature Gran # (Auto) PT 10.3 INR 0.9 Sodium 140 Potassium 4.3 Chloride 109 H Carbon Dioxide 27 Anion Gap 4 BUN 16 Creatinine 0.58 L Est Cr Clr Drug Dosing 104.6 Est GFR ( Amer) > 150.0 Est GFR (Non-Af Amer) 131.8 BUN/Creatinine Ratio 27.6 H Glucose 77 Calcium 9.4 Total Bilirubin 2.1 H Direct Bilirubin 0.5 H AST 53 H ALT 580 H Alkaline Phosphatase 68 Total Protein 7.2 Albumin 4.2 Globulin Albumin/Globulin Ratio HCG, Qual Current Inpatient Medications Current Inpatient Medications: Current Inpatient Medications Albuterol (Albuterol Hfa 8 Gm Inhaler) 2 puffs INH Q6 PRN PRN Reason: asthma Stop: 02/01/23 20:05 Calcium Carbonate (Calcium Carbonate 500 Mg Chewable Tab) 1,000 mg PO TID PRN PRN Reason: Indigestion Stop: 02/01/23 20:13 Diphenhydramine HCl (Diphenhydramine Capsule 25 Mg Cap) 50 mg PO HS ERIN Stop: 02/01/23 20:59 Last Admin: 01/03/23 20:58 Dose: 50 mg Sodium Chloride (Nss 1000ml) 1,000 mls @ 60 mls/hr IV .[id number] ERIN Stop: 02/02/23 13:14 Last Admin: 01/04/23 04:43 Dose: 60 mls/hr Nicotine Polacrilex (Nicotine Polacrilex 2 Mg Gum) 2 piece MT [id number] PRN PRN Reason: nicotine dependance Stop: 02/01/23 20:05 Olanzapine (Olanzapine Zydis 5 Mg Orally Dis. Tab) 7.5 mg PO HS [facility] Stop: 02/02/23 20:59 Last Admin: 01/03/23 20:51 Dose: 7.5 mg Olanzapine (Olanzapine Zydis 5 Mg Orally Dis. Tab) 2.5 mg PO QAM [facility] Stop: 02/03/23 08:59 Last Admin: 01/04/23 08:21 Dose: 2.5 mg Olanzapine (Olanzapine Zydis 5 Mg Orally Dis. Tab) 5 mg PO BID PRN PRN Reason: Agitation/psychosis Stop: 02/02/23 20:59 Last Admin: 01/04/23 08:18 Dose: 5 mg Polyethylene Glycol (Polyethylene (Miralax) 17 Gm Pack) 17 gm PO DAILY PRN PRN Reason: Constipation Stop: 02/02/23 19:57 Last Admin: 01/03/23 20:50 Dose: 17 gm Sennosides (Senna 8.6 Mg Tab) 8.6 mg PO DAILY PRN PRN Reason: Constipation Stop: 02/01/23 20:05
--- NOTE | 2023-01-04 16:15 | Hospitalist Progress Note ---
Date of Service January 04, 2023 Assessment & Plan (1) Overdose on Tylenol: (2) Transaminitis: (3) MDD (major depressive disorder): (4) Mood disorder: (5) Constipation: (6) Tobacco use disorder: (7) Indigestion: (8) Asthma: Plan Pt is a 22yo female presenting from the [facility] (where she was reportedly currently admitted for the past 3 days after a suicide attempt in the setting of MDD) with concern about her liver enzymes and possible tylenol overdose. Tylenol Overdose/Elevated liver enzymes -NAC as ordered -Trend CMP, INR per toxicology recs (due 17 hours after first NAC dose) -Hold home naproxen -Psychiatry consult 01/04 LFTs further improving, INR 1.0 asymptomatic discussed with poison control center NAC protocol completed medically stable to return to the [facility] facility requesting Liver US: ordered MDD/Suicide Attempt/Mood disorder - Olanzapine increased -Psychiatry consulted discussed with Psych Liaison Constipation: continue home senekot Tobacco use Disorder- continue home nicorette Indigestion- continue home TUMs as needed Asthma-continue home inhaler as needed Dispo: return to the [facility] tomorrow Diet: regular, safe tray CODE status: Full code DVT prophylaxis: ambulation as tolerated based on age plan of care discussed with patient in detail and at length all questions answered she is understanding, agreeable, comfortable with the plan of care Admission and Anticipated Discharge Date Admission Date: January 02, 2023 Subjective ff up for tylenol overdose, etc seen resting in bed, comfortable 1:1 Rebekah at bedside throughout whole encounter in good spirits states she feels fine overall no abdominal pain, nausea, fever/chills no chest pain, dyspnea, palpitations, dizziness ambulating with no problems mood is ok no other symptoms eager to return to [place] no other new symptoms Review of Systems Review of Systems: all noted and negative except for above Physical Exam Physical Exam: General- oriented x 3, not in distress, speaks in sentences with no effort or accessory muscle use Eyes- anicteric Neck- no JVD Lungs- clear breath sounds bilaterally, no rales/wheezes Heart- normal rate, regular rhythm; no murmurs Abdomen- normal bowel sounds, nondistended, soft, nontender Extremities- no pretibial edema, no calf tenderness Neuro- alert, oriented x 3; no gross focal neurologic deficits Skin- warm & dry Results & Data Results & Data Vital Signs (Past 12 Hours) Vital Signs Temp Pulse Pulse Resp BP Pulse Ox O2 Del Method 01/04/23 11:10 36.7 C 69 18 134/84 99 Room Air 01/04/23 07:43 67 all noted and reviewed including below
[2023-01-04] MEDS: diphenhydrAMINE Capsule 25 MG CAP PO SCH (21:31)
--- NOTE | 2023-01-04 23:09 | Ultrasound Report ---
Exam(s): US LIVER EXAM: US Abdomen Limited, Right Upper Quadrant CLINICAL HISTORY: Reason for exam: r/o obstruction. TECHNIQUE: Real-time ultrasound of the right upper quadrant with image documentation. COMPARISON: No relevant prior studies available. FINDINGS: Liver: Unremarkable. No mass. Gallbladder: Stones layering dependently within the gallbladder. Gallbladder wall measures 3 mm. No pericholecystic fluid. Negative Cortez's. Common bile duct: Common bile duct measures 3 mm. Pancreas: Unremarkable as visualized. Right kidney: Unremarkable. No hydronephrosis. IMPRESSION: 1. No biliary obstruction. 2. Cholelithiasis without cholecystitis. Electronically signed by: Jono Kelsey MD 01/04/23 23:07 PM
[2023-01-05] MEDS: OLANZapine ZYDIS 5 MG ORALLY DIS. TAB PO SCH (08:10)
[2023-01-05 11:23] LABS: Marijuana Quant, GCMS Urine 437 ng/mL (<5)
--- NOTE | 2023-01-05 13:33 | Hospitalist Progress Note ---
Date of Service January 05, 2023 Assessment & Plan (1) Overdose on Tylenol: (2) Transaminitis: (3) MDD (major depressive disorder): (4) Mood disorder: (5) Constipation: (6) Tobacco use disorder: (7) Indigestion: (8) Asthma: Plan Pt is a 22yo female presenting from the [facility] (where she was reportedly currently admitted for the past 3 days after a suicide attempt in the setting of MDD) with concern about her liver enzymes and possible tylenol overdose. Tylenol Overdose/Elevated liver enzymes -n acetylceisteine protocol given per direction by Poison Control Center care coordinated with them 01/05 clinically improved LFTs improved AST/ALT 53/580 INR 1.0 asymptomatic discussed with poison control center NAC protocol completed medically stable to return to the [facility] facility requesting Liver US: 1. No biliary obstruction. 2. Cholelithiasis without cholecystitis. ff up with PCP as outpatient MDD/Suicide Attempt/Mood disorder - Olanzapine regimen changed to: 2.5mg qam 7.5mg HS -Psychiatry consulted return to the [facility] today for further inpatient Psych care Constipation: continue home senekot Tobacco use Disorder- continue home nicorette Indigestion- continue home TUMs as needed Asthma-continue home inhaler as needed Dispo: return to the [facility] Diet: regular, safe tray CODE status: Full code DVT prophylaxis: ambulation as tolerated based on age plan of care discussed with patient in detail and at length all questions answered she is understanding, agreeable, comfortable with the plan of care Admission and Anticipated Discharge Date Admission Date: January 02, 2023 Subjective ff up for tylenol overdose, etc seen resting in bed, sitting up in good spirits, comfortable 1:1 Cece at bedside throughout whole encounter states she feels better overall denies abdominal pain, nausea/vomiting, fever/chills no chest pain, dyspnea, palpitations, dizziness ambulating with no problems no other symptoms states she is ready for discharge today Review of Systems Review of Systems: all noted and negative except for above Physical Exam Physical Exam: General- oriented x 3, not in distress, speaks in sentences with no effort or accessory muscle use Eyes- anicteric Neck- no JVD Lungs- clear breath sounds bilaterally Heart- normal rate, regular rhythm; no murmurs Abdomen- normal bowel sounds, nondistended, soft, nontender Extremities- no pretibial edema, no calf tenderness Neuro- alert, oriented x 3; no gross focal neurologic deficits Skin- warm & dry
--- NOTE | 2023-01-05 14:19 | Discharge Summary ---
Discharge Summary Date of Service January 05, 2023 Notes For Next Care Provider Medication Changes From Visit OLANZAPINE CHANGED TO 2.5MG IN AM, 7.5MG AT HS Admission HPI Per Admitting Provider Pt is a 22yo female presenting from the [facility] (where she was reportedly currently admitted for the past 3 days after a suicide attempt in the setting of MDD) with concern about her liver enzymes and possible tylenol overdose. Pt's speech is pressured in the room and she is rambling. Unsure the accuracy of her statements as thoughts are tangential. However, she is concerned that she might be as she states she has been sexually active quite a bit recently. Unsure of her last period. States she is a mother to a one year old daughter. Is concerned about "all the big guys". States that she has been taking "handfuls" of tylenol. Would like to go back to "the facility". Denies any N/V/Abdominal pain. ED workup significant for elevated AST and ALT, urine tox positive for THC (marijuana). ED provider contacted Toxicology who advised NAC treatment (ordered by the ED) with repeat CMP and INR 17 hours after the first NAC treatment. Toxicology advised would like liver enzymes <1000 at that time. Admission Exam Per Admitting Provider General: Alert, oriented. No acute distress, resting comfortably in bed. Skin: No noted rashes or bruises Psych: Tangential, incoherent speech Neuro: No gross deficits HEENT: NC/AT Chest: Nontender to palpation. CV: RRR, Normal s1, s2. No murmurs appreciated Resp: Breath sounds clear bilaterally, no increased effort of breathing. Abdomen: Soft, nontender, nondistended. No guarding. Extremities: No edema in lower extremities bilaterally. Principal Dx & Hospital Course #1 = Principal Diagnosis (1) Overdose on Tylenol: (2) Transaminitis: (3) MDD (major depressive disorder): (4) Mood disorder: (5) Constipation: (6) Tobacco use disorder: (7) Indigestion: (8) Asthma: Plan Pt is a 22yo female presenting from the [facility] (where she was reportedly currently admitted for the past 3 days after a suicide attempt in the setting of MDD) with concern about her liver enzymes and possible tylenol overdose. Tylenol Overdose/Elevated liver enzymes -n acetylceisteine protocol given per direction by Poison Control Center care coordinated with them 5/21 clinically improved LFTs improved AST/ALT 53/580 INR 1.0 asymptomatic discussed with poison control center NAC protocol completed medically stable to return to the [facility] requesting Liver US: 1. No biliary obstruction. 2. Cholelithiasis without cholecystitis. ff up with PCP as outpatient MDD/Suicide Attempt/Mood disorder - Olanzapine regimen changed to: 2.5mg qam 7.5mg HS -Psychiatry consulted return to the [facility] today for further inpatient Psych care Constipation: continue home senekot Tobacco use Disorder- continue home nicorette Indigestion- continue home TUMs as needed Asthma-continue home inhaler as needed Dispo: return to the [facility] today Diet: regular, safe tray CODE status: Full code DVT prophylaxis: ambulation as tolerated based on age plan of care discussed with patient in detail and at length all questions answered she is understanding, agreeable, comfortable with the plan of care Discharge Exam General- oriented x 3, not in distress, speaks in sentences with no effort or accessory muscle use Eyes- anicteric Neck- no JVD Lungs- clear breath sounds bilaterally Heart- normal rate, regular rhythm; no murmurs Abdomen- normal bowel sounds, nondistended, soft, nontender Extremities- no pretibial edema, no calf tenderness Neuro- alert, oriented x 3; no gross focal neurologic deficits Skin- warm & dry Updated Medication List Medication Instructions Recorded Confirmed Type albuterol sulfate 90 mcg/actuation 2 puff inhalation Q6 PRN asthma 01/02/23 01/02/23 History aerosol inhaler calcium carbonate 500 mg calcium 1,000 mg PO TID PRN Indigestion 01/02/23 01/02/23 History (1,250 mg) chewable tablet diphenhydramine HCl 50 mg capsule 50 mg PO HS 01/02/23 01/02/23 History naproxen 500 mg tablet 500 mg PO BID PRN Pain 01/02/23 01/02/23 History nicotine (polacrilex) 2 mg gum 2 mg buccal .5XSDAY PRN .nicotine 01/02/23 01/02/23 History (Nicorette) dependance olanzapine 5 mg tablet (Zyprexa) 5 mg PO BID 01/02/23 01/02/23 History sennosides 8.6 mg tablet (Senokot) 8.6 mg PO DAILY PRN Constipation 01/02/23 01/02/23 History olanzapine 5 mg disintegrating 2.5 mg PO QAM 14 days #7 tabs 01/05/23 Rx tablet olanzapine 5 mg disintegrating 7.5 mg PO HS 14 days #21 tabs 01/05/23 Rx tablet Hospital Stay Data Consultations 01/02/23 14:36 ED Decision to Admit Stat 01/02/23 16:38 Consult Psychiatry Routine 01/03/23 00:06 Consult Behavioral Health Liaison Routine Diagnostic Imagining Performed 01/02/23 11:54 CT head/brain wo con Stat TECHNIQUE: Multiaxial CT images of the head were performed without the use of intravenous contrast. Automated exposure control was utilized for this study. A dose lowering technique was utilized adhering to the principles of ALARA. Comparison: None. Findings: The paranasal sinuses and mastoid air cells are clear. The calvarium and skull base are intact. The ventricles and sulci are within normal limits. There is no mass, hematoma, midline shift, or acute infarct. Impression: No acute intracranial abnormality. 01/04/23 13:35 US liver Stat TECHNIQUE: Real-time ultrasound of the right upper quadrant with image documentation. COMPARISON: No relevant prior studies available. FINDINGS: Liver: Unremarkable. No mass. Gallbladder: Stones layering dependently within the gallbladder. Gallbladder wall measures 3 mm. No pericholecystic fluid. Negative Cortez's. Common bile duct: Common bile duct measures 3 mm. Pancreas: Unremarkable as visualized. Right kidney: Unremarkable. No hydronephrosis. IMPRESSION: 1. No biliary obstruction. 2. Cholelithiasis without cholecystitis. Electronically signed by: Jono Kelsey MD 01/04/23 23:07 PM Pending Results Patient Have Any Pending Studies at Discharge: No Discharge Instructions Given to Patient (Per Discharging Provider) PLEASE REFER TO YOUR NEW MEDICATION LIST AND FOLLOW INSTRUCTIONS CAREFULLY. YOUR NEW MEDICATIONS INCLUDE: OLANZAPINE CHANGED TO 2.5mg po AM 7.5mg po HS PLEASE CALL YOUR PRIMARY CARE PHYSICIAN OR RETURN TO THE ER IF WITH WORSENING OF SYMPTOMS, INCLUDING abdominal pain, nausea/vomiting, weakness, fever/chills, etc FOLLOW UP WITH PRIMARY CARE PHYSICIAN IN 1-2 WEEKS. Total Time Total Time Spent Total Time Spent (In Minutes): > 30 MINUTES
== END 2023-01-05 18:13 | DRG 918 ==
LOC: EDBD → ED 11:37 → EDINP 15:26 → SUATTDRO 15:26 → 2N 20:05